=== PATIENT | female | born 1965 | race American Indian/Alaskan Native ===

== ENCOUNTER 2017-12-05 07:38 | Emergency (ER) | payer SELFPAY ==
[2017-12-05 08:02] VITALS: BP 178/111
[2017-12-05] MEDS ORDERED: ASPIRIN PO ONE (08:02)
[2017-12-05 08:42] LABS: Basophils # (Auto) 0.1 K/mm3 (0.0-0.1); Basophils % (Auto) 1.1 % (0.0-1.8); Eosinophils # (Auto) 0.1 K/mm3 (0.0-0.4); Eosinophils % (Auto) 1.3 % (0.0-4.3); Hematocrit 41.6 % (30.3-42.9); Lymphocytes # (Auto) 2.5 K/mm3 (1.2-5.4); Lymphocytes % (Auto) 31.9 % (13.4-35.0); Mean Corpuscular HGB Conc 34 % (30-34); Mean Corpuscular Volume 74 fl (79-97); Monocytes # (Auto) 0.4 K/mm3 (0.0-0.8); Monocytes % (Auto) 4.6 % (0.0-7.3); Platelet Count 225 K/mm3 (140-440); Red Blood Count 5.65 M/mm3 (3.65-5.03); Red Cell Distribution Width 14.5 % (13.2-15.2)
[2017-12-05 08:43] LABS: Mean Corpuscular Hemoglobin 25 pg (28-32)
[2017-12-05 09:58] LABS: BUN/Creatinine Ratio 17; Blood Urea Nitrogen 12 mg/dL (7-17); Calcium 9.1 mg/dL (8.4-10.2); Hemolysis Index 12
== END 2017-12-05 09:25 | disposition left against medical advice (07) ==
LOC: ED 07:38
DX: R07.9 Chest pain, unspecified (principal); Z53.21 Procedure and treatment not carried out due to patient leaving prior to being seen by health care provider
CPT/HCPCS: 36415; 80048; 84484; 85025; 93005; 93010

== ENCOUNTER 2019-09-13 21:54 | Emergency (ER) | payer OTHER ==
[2019-09-13] MEDS ORDERED: ASPIRIN 325 MG TAB PO ONE (23:14)
--- NOTE | 2019-09-13 23:47 | XRay Report ---
CHEST 1 VIEW 09/13/2019 11:39 PM INDICATION / CLINICAL INFORMATION: Chest Pain. COMPARISON: View of the chest from 05/07/2013. FINDINGS: SUPPORT DEVICES: None. HEART / MEDIASTINUM: No significant abnormality. LUNGS / PLEURA: No significant pulmonary or pleural abnormality. No pneumothorax. ADDITIONAL FINDINGS: No significant additional findings. IMPRESSION: 1. No acute abnormality of the chest. Signer Name: Yomi Perez MD Signed: 09/13/2019 11:42 PM Workstation Name: [id number]
[2019-09-14 00:12] LABS: Basophils # (Auto) 0.1 K/mm3 (0.0-0.1); Basophils % (Auto) 0.9 % (0.0-1.8); Eosinophils # (Auto) 0.1 K/mm3 (0.0-0.4); Eosinophils % (Auto) 1.3 % (0.0-4.3); Hematocrit 39.3 % (30.3-42.9); Hemoglobin 13.1 gm/dl (10.1-14.3); Lymphocytes # (Auto) 2.2 K/mm3 (1.2-5.4); Lymphocytes % (Auto) 26.7 % (13.4-35.0); Mean Corpuscular HGB Conc 33 % (30-34); Mean Corpuscular Volume 75 fl (79-97); Monocytes # (Auto) 0.4 K/mm3 (0.0-0.8); Monocytes % (Auto) 4.6 % (0.0-7.3); Platelet Count 249 K/mm3 (140-440); Red Blood Count 5.23 M/mm3 (3.65-5.03); Red Cell Distribution Width 14.1 % (13.2-15.2)
[2019-09-14 00:26] LABS: BUN/Creatinine Ratio 19; Blood Urea Nitrogen 13 mg/dL (7-17); Calcium 9.7 mg/dL (8.4-10.2); Hemolysis Index 4
--- NOTE | 2019-09-14 01:43 | Emergency Department Report ---
ED Chest Pain HPI - General Chief Complaint: Chest Pain Stated Complaint: CHEST PAIN/PAIN IN NECK,UNDER LEFT BREAST Time Seen by Provider: 09/14/19 01:40 Source: patient Mode of arrival: Ambulatory Limitations: No Limitations - History of Present Illness Initial Comments: Patient is a 54-year-old female that presents emergency room with complaints of chest pain 2 days. Patient states her chest pain is radiating to her neck. Patient states her chest pain is a 1-2 out of 10. Patient states the chest pain is under her left breast. Patient states the chest pain not reproducible by palpation. Patient states the pain is intermittent. Patient states the pain is mild. Patient states the pain is better with rest and worse with movement. Patient states she's also had a lot of indigestion and burping lately. Patient denies anxiety. Patient denies nausea vomiting. Patient denies shortness of breath. Patient states he has a past medical history of hypertension and is diet-controlled. MD Complaint: chest pain -: Sudden Onset: during rest Pain Location: left chest Pain Radiation: neck Severity: mild, severe Severity scale (0 -10): 2 Quality: pressure Consistency: intermittent Improves With: rest Worsens With: movement re: denies: nausea, vomting, diaphoresis, dyspnea, sense of impending doom Other Symptoms: denies: cough, fever, syncope, rash, acid taste in mouth, leg swelling, palpitations, burping Treatments Prior to Arrival: none Aspirin use within the Past 7 Days: (0) No - Related Data On Oral Contraceptives: No Previous Rx's Medication Instructions Recorded Last Taken Type Amoxicillin/K Clav Tab [Augmentin 1 each PO Q8HR #30 tablet 07/08/14 Unknown Rx 500 mg] HYDROcodone/ACETAMINOPHEN [Lortab 1 each PO Q8H #12 tablet 07/08/14 Unknown Rx 5-325 mg Tablet] Amlodipine Besylate [Norvasc] 5 mg PO DAILY 15 Days #15 tablet 09/14/19 Unknown Rx Esomeprazole Magnesium [NexIUM] 40 mg PO QDAY 30 Days #30 09/14/19 Unknown Rx capsule. Allergies Allergy/AdvReac Type Severity Reaction Status Date / Time No Known Allergies Allergy Verified 12/05/17 15:31 Heart Score - HEART Score History: Slightly suspicious EKG: Normal Age: 45-65 Risk factors: No known risk factors Troponin: < normal limit HEART Score: 1 ED Review of Systems ROS: Stated complaint: CHEST PAIN/PAIN IN NECK,UNDER LEFT BREAST Other details as noted in HPI Constitutional: denies: chills, fever Eyes: denies: eye pain, eye discharge, vision change ENT: denies: ear pain, throat pain Respiratory: denies: cough, shortness of breath, wheezing Cardiovascular: chest pain. denies: palpitations Endocrine: no symptoms reported Gastrointestinal: denies: abdominal pain, nausea, diarrhea Genitourinary: denies: urgency, dysuria, discharge Musculoskeletal: denies: back pain, joint swelling, arthralgia Skin: denies: rash, lesions Neurological: denies: headache, weakness, paresthesias Psychiatric: denies: anxiety, depression Hematological/Lymphatic: denies: easy bleeding, easy bruising ED Past Medical Hx - Past Medical History Previous Medical History?: Yes Hx Hypertension: Yes - Surgical History Past Surgical History?: Yes Hx Appendectomy: Yes - Family History Family history: no significant - Social History Smoking Status: Never Smoker Substance Use Type: None - Medications Home Medications: Home Medications Medication Instructions Recorded Confirmed Last Taken Type Amoxicillin/K Clav Tab [Augmentin 1 each PO Q8HR #30 tablet 07/08/14 Unknown Rx 500 mg] HYDROcodone/ACETAMINOPHEN [Lortab 1 each PO Q8H #12 tablet 07/08/14 Unknown Rx 5-325 mg Tablet] Amlodipine Besylate [Norvasc] 5 mg PO DAILY 15 Days #15 tablet 09/14/19 Unknown Rx Esomeprazole Magnesium [NexIUM] 40 mg PO QDAY 30 Days #30 09/14/19 Unknown Rx capsule. ED Physical Exam - General Limitations: No Limitations General appearance: alert, in no apparent distress - Head Head exam: Present: atraumatic, normocephalic - Eye Eye exam: Present: normal appearance, PERRL Pupils: Present: normal accommodation - ENT ENT exam: Present: mucous membranes moist - Neck Neck exam: Present: normal inspection - Respiratory Respiratory exam: Present: normal lung sounds bilaterally. Absent: respiratory distress, wheezes, rales - Cardiovascular Cardiovascular Exam: Present: regular rate, normal rhythm. Absent: systolic murmur, diastolic murmur, rubs, gallop - GI/Abdominal GI/Abdominal exam: Present: soft, normal bowel sounds. Absent: distended, tenderness, guarding - Extremities Exam Extremities exam: Present: normal inspection - Back Exam Back exam: Present: normal inspection - Neurological Exam Neurological exam: Present: alert, oriented X3 - Psychiatric Psychiatric exam: Present: normal affect, normal mood - Skin Skin exam: Present: warm, dry, intact, normal color. Absent: rash ED Course Vital Signs 09/13/19 21:57 Temperature 98.5 F Pulse Rate 117 H Respiratory 16 Rate Blood Pressure 202/124 O2 Sat by Pulse 99 Oximetry - Reevaluation(s) Reevaluation #1: I discussed all results with patient. Patient's current blood pressure is 170/104. Patient states her chest pain has resolved. Patient states her neck pain has resolved. Patient states she had a large burp and her chest pain went away. I discussed plan of care with patient. I discussed high blood pressure patient. I discussed heart, low-salt diet with patient. Patient agrees to plan of care. Patient stable for discharge. Patient given discharge instructions. Patient voiced understanding of all discharge instructions. 09/14/19 02:27 VERONIKA score - Veronika Score Age > 65: (0) No Aspirin use within the Past 7 Days: (0) No 3 or more CAD Risk Factors: (0) No 2 or more Angina events in past 24 hrs: (1) Yes Known CAD with more than 50% Stenosis: (0) No Elevated Cardiac Markers: (0) No ST Deviation Greater than 0.5mm: (0) No VERONIKA Score: 1 ED Medical Decision Making - Lab Data Result diagrams: 09/13/19 23:26 09/13/19 23:26 - EKG Data -: EKG Interpreted by Me EKG shows normal: sinus rhythm, axis, intervals, QRS complexes, ST-T waves Rate: normal - Radiology Data Radiology results: report reviewed, image reviewed interpreted by me: No acute findings on chest x-ray. - Medical Decision Making Patient is a 54-year-old female that presents emergency room with chest pain. Patient's chest pain is low risk. Patient will be discharged home with an outpatient follow-up with a local cardiology group. Patient's information was f axed over to [facility]. Patient's chest pain resolved while in the ER after a large burp. Patient's chest pain is consistent with lower chest pain and acid reflux and indigestion. Patient's initial cardiac workup was negative. Patient's chest x-ray negative. Patient's EKG negative. Patient found to have elevated blood pressure the ER. Patient given Norvasc prescription upon discharge. - Differential Diagnosis cp. hypertension. gerd Critical care attestation.: If time is entered above; I have spent that time in minutes in the direct care of this critically ill patient, excluding procedure time. ED Disposition Clinical Impression: GERD (gastroesophageal reflux disease) Qualifiers: Esophagitis presence: without esophagitis Qualified Code(s): K21.9 - Gastro- esophageal reflux disease without esophagitis Hypertension Qualifiers: Hypertension type: essential hypertension Qualified Code(s): I10 - Essential (primary) hypertension Chest pain Qualifiers: Chest pain type: unspecified Qualified Code(s): R07.9 - Chest pain, unspecified Disposition: TO HOME OR SELFCARE Is pt being admited?: No Does the pt Need Aspirin: No Condition: Stable Instructions: Hypertension (ED), Chest Pain (ED), Diet for Ulcers and Gastritis (ED), Gastroesophageal Reflux Disease (ED), Low Sodium Diet (ED), DASH Eating Plan (ED), How to Take a Blood Pressure (ED), Heart Healthy Diet (ED) Additional Instructions: Patient to follow-up with primary care in 2-3 days. Patient with [facility] worker in 2-3 days. Patient to return to ER condition worsens. Patient to rest. Patient to avoid strenuous exercise and activity until cleared by cardiology. Patient to take meds as directed. Patient to increase water. Patient to eat a reflux diet. Patient to eat a heart healthy, low-salt diet. Patient to keep a blood pressure loll at home. Patient to take blood pressure log to her follow- up with her outpatient physicians. Patient to take Tylenol when necessary for pain. Prescriptions: Esomeprazole Magnesium [NexIUM] 40 mg PO QDAY 30 Days #30 capsule. Amlodipine Besylate [Norvasc] 5 mg PO DAILY 15 Days #15 tablet Referrals: LIANET MCINTYRE MD [Primary Care Provider] - 2-3 Days LINA POTTS MD [Staff Physician] - 2-3 Days Time of Disposition: 02:33
[2019-09-14 02:47] VITALS: BP 164/90
== END 2019-09-14 02:52 | disposition home or self-care (01) ==
LOC: ED 21:54
DX: K21.9 Gastro-esophageal reflux disease without esophagitis (principal); I10 Essential (primary) hypertension; R07.89 Other chest pain; Z90.49 Acquired absence of other specified parts of digestive tract; Z79.2 Long term (current) use of antibiotics; Z79.899 Other long term (current) drug therapy
CPT/HCPCS: 36415; 71045; 80048; 84484; 85025; 93005; 93010

== ENCOUNTER 2022-05-25 10:16 | Emergency (ER) | payer OTHER | END 2022-05-25 14:31 | disposition left against medical advice (07) | LOC: ED 10:16 | DX: S93.402A Sprain of unspecified ligament of left ankle, initial encounter (principal); Z53.21 Procedure and treatment not carried out due to patient leaving prior to being seen by health care provider; W19.XXXA Unspecified fall, initial encounter; Y93.89 Activity, other specified; Y92.89 Other specified places as the place of occurrence of the external cause; Y99.8 Other external cause status ==